=== PATIENT | female | born 1955 | race Asian ===

== ENCOUNTER 2018-01-08 05:05 | Day surgery (SDC) | payer OTHER ==
[2018-01-02 14:25] VITALS: BMI 25.1
[2018-01-08] MEDS ORDERED: DESFLURANE GAS 240 ML BOTTLE IH ONE ×2 (08:05→10:03)
[2018-01-08] MEDS ORDERED: CEFAZOLIN 2 GM/D5W 2 GM/50 ML ML IVPB ONE (09:46)
[2018-01-08] MEDS ORDERED: MIDAZOLAM HCL 2 MG/2 ML SINGLE DOSE VIAL ONE (09:52)
[2018-01-08] MEDS ORDERED: PROPOFOL 20 ML ONE (09:52)
[2018-01-08] MEDS ORDERED: GLYCOPYRROLATE 0.2 MG/1 ML VIAL ONE (09:53)
[2018-01-08] MEDS ORDERED: PHENAZOPYRIDINE HCL 100 MG TABLET (FP) PO ONE ×2 (09:53→10:14)
[2018-01-08] MEDS ORDERED: ROCURONIUM BROMIDE 50 MG/5 ML VIAL ONE (09:53)
[2018-01-08] MEDS ORDERED: BACITRACIN 15 GM TUBE TOPICAL OINTMENT ONE (10:03)
[2018-01-08] MEDS ORDERED: BUPIVACAINE HCL/PF 0.5% (5MG/ML) 10 ML VIAL ONE (10:03)
--- NOTE | 2018-01-08 10:05 | OP ---
Operative Note - Note: Operative Date: 01/08/18 Pre-Operative Diagnosis: Uterine vaginal prolapse. Cystocele Operation: Robotic Laparoscopic Total Hysterectomy. Bilateral Salpingectomy Findings: Uterus 7 cm normal tubes & ovaries Post-Operative Diagnosis: Same as Pre-op Surgeon: Janessa Prabhakar Sandwich Artist: Christoph Gonzalez (Nicole GARCIA) Anesthesia: General Estimated Blood Loss (mls): 50 Operative Report Dictated: Yes
--- NOTE | 2018-01-08 10:05 | HP ---
History & Physical Update - History History: No Change - Physical Physical: No Change - Assessment Assessment: No Change - Plan Plan: No Change (HP updated)
[2018-01-08] MEDS ORDERED: CEFOXITIN SODIUM 1 GM IVPB ONE ×2 (10:44)
[2018-01-08] MEDS ORDERED: cefOXitin SODIUM 1 GM VIAL (RESTRICTED TO ID) IVPB ONE (11:06)
[2018-01-08] MEDS ORDERED: DEXAMETHASONE SOD PHOSPHATE 4 MG/1 ML VIAL ONE ×2 (11:51)
[2018-01-08] MEDS ORDERED: VASOPRESSIN 20 UNITS/ML VIAL IV ONE (11:54)
[2018-01-08] MEDS ORDERED: NEOSTIGMINE METHYLSULFATE 0.5 MG/ML - 10 ML MDV ONE (12:44)
[2018-01-08] MEDS ORDERED: oxyCODONE HCL 5 MG TABLET PO PRN ×2 (13:24)
[2018-01-08] MEDS ORDERED: LACTATED RINGERS SOLUTION 1,000 ML/1,000 ML INFUS.BAG IV SCH (13:30)
--- NOTE | 2018-01-08 15:41 | OP ---
DATE OF OPERATION: 01/08/2018 PREOPERATIVE DIAGNOSES: Uterine vaginal prolapse and cystocele. OPERATION: Laparoscopic, robotic total hysterectomy and bilateral salpingectomy. SURGEON: Janessa Prabhakar MD FISHING MANAGER: RADHA Bell and RADHA Morales ANESTHESIA: General. FINDINGS: Uterus approximately 8 cm in size with uterine vaginal prolapsing, large cystocele also seen. PROCEDURE: Patient was taken to the operating room, placed in dorsal lithotomy position, prepped and draped in usual sterile fashion. A timeout was performed in accordance with hospital regulation. Anterior lip of the cervix grasped with single-tooth tenaculum. Cervix was then dilated, and the uterine manipulator was then inserted. Matos catheter was inserted into the bladder. Attention was then drawn to the umbilicus where an 8-mm umbilical incision was made. Veress needle was inserted into the cavity. Approximately 3-4 L of CO2 were insufflated in the cavity. Veress needle was then removed, and an 8-mm trocar was then inserted. Laparoscope and camera attached. Visualization of the retroverted uterus with normal tubes and ovaries. The two incisions were made on the left side, and 2 trocars were then inserted. An 8-mm trocar was inserted parallel to the umbilicus on the left side, and an AirSeal cannula was inserted in the upper abdomen on the left. Two trocars were then inserted on the right side parallel to the umbilical incision about 8 cm on each of them apart, and trocars were then directly inserted under direct visualization. Patient was then placed in steep Trendelenburg, and the da Nevaeh robot was side docked to the patient's bedside. Trocars were then inserted. Instruments were then placed. The tenaculum and EndoShears were placed on the right and the vessel sealer was placed on the left trocar under direct visualization. After placement of trocars and instruments was done and confirmed, attention was then drawn to the sitting at the console. Control of the console was then done. The uterus was then grasped with the tenaculum and tilted to the right side. Vessel sealer was then used to cut utero-ovarian ligament and also the uterine artery. Vesicouterine reflection was then entered with EndoShears, and bladder was then bluntly dissected out of the operative field. Cardinal ligaments were coagulated and cut on the left side. The same procedure was repeated on the right side. The tubes and ovaries were noted to be normal. Tubes were bilaterally grasped and removed. Bladder was bluntly dissected out of the operative field. The vagina was then entered and cutting of the vagina was done and the cervix was removed from the vagina. The cervix, tubes, and uterus were then removed from the vagina, and 2-0 V-Loc suture was then introduced. The cuff was then closed using a continuous stitch using V-Loc suture. Hemostasis was achieved. After hemostasis had been achieved, all instruments were then removed. The CO2 was removed from the abdomen. Incisions were then closed using 3-0 Vicryl suture in a subcuticular fashion. Wounds were washed and dressed. Surgery was turned over to Urologist Dr Baez Patient had tolerated procedure well and was taken to recovery room in stable condition after Dr. Leija had performed the sling on the patient. Estimated blood loss for my portion was 50 mL, and patient was taken to recovery room in stable condition. No untoward events were done. Pad count was noted to be normal, and all needles had been removed prior to the closure of the abdomen. Wounds were washed and dressed, and patient was taken to recovery room in stable condition. Lora [id number] MTDD
--- NOTE | 2018-01-08 17:28 | OP ---
DATE OF OPERATION: 01/08/2018 PREOPERATIVE DIAGNOSIS: Stress incontinence. POSTOPERATIVE DIAGNOSIS: Stress incontinence. PROCEDURE: Midurethral sling placement. HISTORY: This is a very pleasant 62-year-old female who is scheduled for a robotic hysterectomy for uterine lesion as well as bleeding. She has been a patient of Dr. Prabhakar for quite some time now. She had also on preoperative evaluation determined and documented stress incontinence. She was offered treatment options and elected to undergo the above-stated procedure. Risks and benefits of treatment and alternative treatments were discussed in detail, and all questions were answered. BRIEF OPERATIVE NOTE: After completion of robotic hysterectomy, the attention was now turned towards the urethra brought a vaginal approach. Vaginal stay sutures were applied. The previously placed Matos was removed. Approximately 10 mL of vasopressin with saline was administered as a mucosal dissector. The Matos was then placed and placed to suction. Approximately 2-cm incision was made transversely approximately 1 cm proximal to the meatus. The anterior vaginal wall was then carefully dissected from periurethral tissue. A space was created up to the obturator foramen bilaterally. At this time an Altis sling was placed in normal position. Care was taken to be sure that the sling was flat and in good position, not too snug. There was no active bleeding. At this time, the catheter was removed. Cystoscopy was carefully performed. There was clear efflux of both ureteral orifices. The urethra was intact, and there was no evidence of bladder energy. At this time, excess portion of anterior vaginal wall was excised. The anterior vaginal wall was then closed using a running 2-0 Vicryl suture. The Matos was then placed to straight drainage. Vaginal packing was applied. Patient was brought to recovery room in stable and satisfactory condition. Lora [id number]
[2018-01-08] MEDS: CEFOXITIN SODIUM 2 GM in DEXTROSE 5%-WATER - 100 ML IVPB SCH (18:34)
[2018-01-08 19:26] LABS: ANION GAP 11 MMOL/L (8-16); BLOOD UREA NITROGEN 9 mg/dL (7-18); CALCIUM 8.7 mg/dL (8.5-10.1); CHLORIDE 101 mmol/L (98-107); CO2 24 mmol/L (21-32); CREATININE 0.7 mg/dL (0.55-1.3); GLUCOSE,RANDOM 157 mg/dL (74-106); POTASSIUM 3.8 mmol/L (3.5-5.1); SODIUM 136 mmol/L (136-145)
[2018-01-08 19:54] LABS: BASO % 0.1 % (0-2.0); EOS % 0.6 % (0-4.5); HEMATOCRIT 42.1 % (32.4-45.2); HEMOGLOBIN 14.4 GM/dL (10.7-15.3); LYMPH % 4.1 % (8-40); MCH 29.4 pg (25.7-33.7); MCHC 34.2 g/dl (32.0-36.0); MEAN CELL VOLUME 86.1 fl (80-96); MEAN PLT VOLUME 8.3 fl (7.5-11.1); NEUT % 94.2 % (42.8-82.8); PLATELET COUNT 308 K/MM3 (134-434); RBC 4.89 M/mm3 (3.60-5.2); RDW 13.9 % (11.6-15.6); WHITE BLOOD COUNT 12.2 K/mm3 (4.0-10.0)
[2018-01-08] MEDS: IBUPROFEN 800 MG/8 ML IJ IVPB PRN (20:47)
[2018-01-08] MEDS ORDERED: ACETAMINOPHEN 325 MG TABLET (FP) PO PRN (21:00)
[2018-01-08 21:56] LABS: PLATELET ESTIMATE ADEQUATE
[2018-01-08 22:09] LABS: ANION GAP 13 MMOL/L (8-16); BLOOD UREA NITROGEN 8 mg/dL (7-18); CALCIUM 8.6 mg/dL (8.5-10.1); CHLORIDE 101 mmol/L (98-107); CO2 22 mmol/L (21-32); GLUCOSE,RANDOM 176 mg/dL (74-106); POTASSIUM 3.8 mmol/L (3.5-5.1); SODIUM 137 mmol/L (136-145)
[2018-01-08] MEDS: DOCUSATE SODIUM 100 MG CAPSULE (FP) PO SCH (23:19)
[2018-01-09] MEDS: CEFOXITIN SODIUM 2 GM in DEXTROSE 5%-WATER - 100 ML IVPB SCH (02:07)
--- NOTE | 2018-01-09 06:25 | PN ---
Progress Note (SOAP) - Subjective Chief Complaint: Pt doing well - Current Medications Current Medications: Active Medications Acetaminophen (Tylenol -) 650 mg PO Q4H PRN PRN Reason: PAIN OR FEVER Amlodipine Besylate (Norvasc -) 10 mg PO DAILY [facility] Docusate Sodium (Colace -) 100 mg PO BID [facility] Last Admin: 01/08/18 23:19 Dose: 100 mg Enoxaparin Sodium (Lovenox -) 40 mg SQ DAILY [facility] Lactated Ringer's (Lactated Ringers Solution) 1,000 ml in 1,000 mls @ 100 mls/ hr IV ASDIR [facility] Last Admin: 01/08/18 15:15 Dose: 0 mls Ibuprofen (Caldolor Injection -) 800 mg IVPB Q8H PRN PRN Reason: PAIN LEVEL 1-5 Last Admin: 01/08/18 20:47 Dose: 800 mg Levothyroxine Sodium (Synthroid -) 50 mcg PO AM [facility] Last Admin: 01/09/18 06:17 Dose: 50 mcg Oxycodone HCl (Roxicodone -) 5 mg PO Q4H PRN PRN Reason: PAIN LEVEL 1-5 Oxycodone HCl (Roxicodone -) 10 mg PO Q4H PRN PRN Reason: PAIN LEVEL 6-10 - Objective Vital Signs: Vital Signs Temperature 98.7 F 01/09/18 06:00 Pulse Rate 86 01/09/18 06:00 Respiratory Rate 20 01/09/18 06:00 Blood Pressure 115/62 01/09/18 06:00 O2 Sat by Pulse Oximetry (%) 95 01/09/18 06:15 Constitutional: Yes: Well Nourished, No Distress Gastrointestinal: Yes: WNL, Soft Musculoskeletal: Yes: WNL, Muscle Weakness Peripheral Pulses WNL: No Labs Lab Results: CBC, BMP 01/08/18 18:00 01/08/18 21:20 Problem List - Problems (1) Uterine prolapse without vaginal wall prolapse Code(s): N81.4 - UTEROVAGINAL PROLAPSE, UNSPECIFIED Assessment/Plan POD 1 stable Plan DC home if cleared by urology
[2018-01-09] MEDS ORDERED: LEVOTHYROXINE NA 50 MCG TABLET (FP) PO SCH (07:00)
[2018-01-09 07:57] LABS: HEMATOCRIT 37.2 % (32.4-45.2); HEMOGLOBIN 12.2 GM/dL (10.7-15.3); LYMPH % 7.5 % (8-40); MCH 28.1 pg (25.7-33.7); MCHC 32.9 g/dl (32.0-36.0); MEAN CELL VOLUME 85.6 fl (80-96); MEAN PLT VOLUME 7.8 fl (7.5-11.1); MONO % 8.7 % (3.8-10.2); NEUT % 83.8 % (42.8-82.8); PLATELET COUNT 274 K/MM3 (134-434); RBC 4.35 M/mm3 (3.60-5.2); RDW 13.4 % (11.6-15.6)
[2018-01-09] MEDS: IBUPROFEN 800 MG/8 ML IJ IVPB PRN (08:29)
[2018-01-09 08:34] LABS: ANION GAP 10 MMOL/L (8-16); BLOOD UREA NITROGEN 11 mg/dL (7-18); CALCIUM 8.8 mg/dL (8.5-10.1); CHLORIDE 105 mmol/L (98-107); CO2 24 mmol/L (21-32); CREATININE 0.7 mg/dL (0.55-1.3); GLUCOSE,RANDOM 136 mg/dL (74-106); SODIUM 139 mmol/L (136-145)
[2018-01-09] MEDS ORDERED: ENOXAPARIN NA (PORCINE) 40 MG/0.4 ML DISP.SYRIN SQ SCH (10:00)
[2018-01-09] MEDS ORDERED: amLODIPine BESYLATE 10 MG TABLET (FP) PO SCH ×2 (10:00)
[2018-01-09 10:48] VITALS: PULSE 80
[2018-01-09] MEDS: DOCUSATE SODIUM 100 MG CAPSULE (FP) PO SCH (11:40)
--- NOTE | 2018-01-09 14:01 | CONSULT ---
Consult - text type - Consultation Consultation Note: doing well s/p combined robotic hysterectomy and urethral sling vag packing d/c ed Matos removed Voiding well follow as opd 3 weeks
[2018-01-09 15:39] VITALS: BP 118/66; TEMP 97.4
--- NOTE | 2018-01-14 15:55 | PATH ---
Surgical Pathology Report Patient Name: ROSCOE HERNANDEZ [facility]. Rec. #: [id number] /Age/Gender: 1955 (Age: 62) / F Account: [id number] Location: AMBULATORY SURG Taken: 01/08/2018 Received: 01/09/2018 Reported: 01/14/2018 Physicians: Janessa Prabhakar M.D. Specimen(s) Received A: RIGHT FALLOPIAN TUBE B: LEFT FALLOPIAN TUBE C: UTERUS AND CERVIX D: PORTION OF ANTERIOR VAGINAL WALL Clinical History Pelvic prolapse, urinary incontinence Final Diagnosis A. RIGHT FALLOPIAN TUBE, SALPINGECTOMY: PORTION OF FALLOPIAN TUBE WITH COMPLETE CROSS SECTION OF LUMEN. NEGATIVE FOR MALIGNANCY. B. LEFT FALLOPIAN TUBE, SALPINGECTOMY: PORTION OF FALLOPIAN TUBE WITH COMPLETE CROSS SECTION OF LUMEN. NEGATIVE FOR MALIGNANCY. C. UTERUS AND CERVIX, HYSTERECTOMY: LEIOMYOMAS. ATROPHIC ENDOMETRIUM. CERVIX WITH CHRONIC INFLAMMATION, SQUAMOUS METAPLASIA, AND PARAKERATOSIS. D. PORTION OF ANTERIOR VAGINA WALL, EXCISION: SQUAMOUS EPITHELIUM WITH FOCAL ACANTHOSIS. Electronically Signed Mary Looney M.D. Gross Description A. Received in formalin labeled "right fallopian tube," is a 1.8 cm in length fimbriated portion of fallopian tube. The outer surface is olsen-weiss and smooth. Sectioning reveals an unremarkable lumen. Calendering Machine Operator sections are submitted in 2 cassettes as follows: 1-fimbria; 2-cross sections of fallopian tube. B. Received in formalin labeled "left fallopian tube," is a 3 cm in length fimbriated portion of fallopian tube. The outer surface is olsen queen and smooth. Sectioning reveals an unremarkable lumen. Calendering Machine Operator sections are submitted in 2 cassettes as follows: 1-fimbria; 2-cross sections of fallopian tube. C. Received in formalin labeled "uterus and cervix," is a 47 g uterus with an attached cervix and no attached adnexa. The specimen measures 7 cm from superior to inferior, 4.5 cm from left to right and 2.5 cm from anterior to posterior. The attached cervix measures 2.8 cm in length and averages 1.8 cm in diameter. The ectocervix is olsen-weiss with a focal defect. The endocervix is unremarkable. The endometrial cavity measures 2.7 cm in length and 1.5 cm from cornu to cornu. The endometrium is olsen-red and averages 0.1 cm in thickness. The myometrium displays 2 olsen intramural nodules measuring 0.4 and 1.7 cm in greatest dimension. The cut surface of the nodules is olsen and rubbery with whorled architecture. No areas of hemorrhage or necrosis are identified. The remaining myometrium is olsen-pink with a focal defect and averages 1.2 cm in thickness. Calendering Machine Operator sections are submitted in 7 cassettes as follows: 1-anterior cervix; 2-posterior cervix; 1-3-cyrhabyv endomyometrium; 2-7-zueoxwemi endomyometrium; 7-intramural nodules. D. Received in formalin labeled "portion of anterior vaginal wall," is a 2.5 x 0.9 x 0.6 cm olsne portion of soft tissue, consistent with a portion of vaginal wall. Calendering Machine Operator sections are submitted in one cassette. 01/09/2018 [facility]01/09/2018
== END 2018-01-09 16:00 | disposition home or self-care (01) ==
LOC: JASUSAT 05:05 → EDSTATUS 08:00 → J3W 15:56 → JASUSAT 01-09 16:00
PROVIDERS: ATTEND Obstetrics & Gynecology
PROC: 8E0W4CZ Robotic Assisted Procedure of Trunk Region, Percutaneous Endoscopic Approach (ICD-10-PCS; 2018-01-08)
PROC: 0TSD0ZZ Reposition Urethra, Open Approach (ICD-10-PCS; 2018-01-08)
PROC: 0UT9FZZ Resection of Uterus, Via Natural or Artificial Opening With Percutaneous Endoscopic Assistance (ICD-10-PCS; principal; 2018-01-08 10:00)
PROC: 0UT7FZZ Resection of Bilateral Fallopian Tubes, Via Natural or Artificial Opening With Percutaneous Endoscopic Assistance (ICD-10-PCS; 2018-01-08 10:00)
DX: N81.4 Uterovaginal prolapse, unspecified (principal); N39.3 Stress incontinence (female) (male)
CPT/HCPCS: 57288; 58552; C1771; S2900; 36415; 80048; 84703; 85025; 86850; 86900; 86901; 88302-TC; 88307-TC; 94010; 94760